=== PATIENT | female | born 1960 | race Caucasian/White ===

== ENCOUNTER 2018-11-28 14:21 | Emergency (ER) | payer MEDICAID ==
[~2018-11-28] VITALS: Ht 167.6 cm; Wt 79.8 kg
[2018-11-28] MEDS ORDERED: JARDIANCE25 MG PO (15:12)
[2018-11-28] MEDS ORDERED: LIPITOR80 MG GT (15:13)
[2018-11-28] MEDS ORDERED: BRILINTA90 MG PO (15:13)
[2018-11-28] MEDS ORDERED: COZAAR50 MG PO (15:15)
[2018-11-28] MEDS ORDERED: ASPIR 8181 MG PO (15:15)
[2018-11-28] MEDS ORDERED: METFORMIN HCL1000 MG PO (15:16)
[2018-11-28] MEDS ORDERED: TOPROL XL50 MG PO (15:16)
[2018-11-28] MEDS ORDERED: TIZANIDINE HCL4 MG PO (15:19)
[2018-11-28] MEDS ORDERED: ULTRAM50 MG PO ×2 (15:20→15:37)
== END 2018-11-28 15:59 | disposition home or self-care (01) ==
LOC: ED 14:21
DX: M79.7 Fibromyalgia (principal); Z76.0 Encounter for issue of repeat prescription; I10 Essential (primary) hypertension; F17.200 Nicotine dependence, unspecified, uncomplicated; Z88.0 Allergy status to penicillin; Z88.8 Allergy status to other drugs, medicaments and biological substances; Z79.899 Other long term (current) drug therapy; Z79.82 Long term (current) use of aspirin; Z79.84 Long term (current) use of oral hypoglycemic drugs
CPT/HCPCS: 99281